=== PATIENT | male | born 1950 | race Caucasian/White ===

== ENCOUNTER 2023-09-14 17:24 | Inpatient (IN) | payer BC ==
[~2023-09-14] VITALS: Ht 185.4 cm; Wt 97.7 kg
[2023-09-14 17:50] VITALS: BP 109/44; PULSE 134; RESP 42; TEMP 99; O2SAT 100
[2023-09-14] MEDS ORDERED: cefTRIAXone 1,000 MG VIAL ONE (18:23)
[2023-09-14] MEDS: cefTRIAXone 1,000 MG in DEXT 5% MINI-BAG PLUS 50 ML IV ONE (18:46)
[2023-09-14] MEDS: NACL 0.9% 1,000 ML IV SCH ×2 (18:47→23:00)
[2023-09-14 19:05] LABS: BASOPHILS % (AUTO) 0.1 % (0.0-2.0); HEMATOCRIT 30.6 % (36-52); HEMOGLOBIN 10.3 g/dL (12.0-18.0); LYMPHOCYTES # (AUTO) 0.1 K/uL (2.0-11.5); MEAN CORPUSCULAR HEMOGLOBIN 30 pg (27-31); MEAN CORPUSCULAR HGB CONC 34 g/dL (33-37); MEAN CORPUSCULAR VOLUME 87.9 fL (80-94); NEUTROPHILS # (AUTO) 12.6 K/uL (1.8-7.7); NEUTROPHILS % (AUTO) 91.9 % (42.2-75.2); PLATELET COUNT (AUTO) 229 K/uL (140-450); RED BLOOD CELL COUNT(AUTO) 3.48 MIL/uL (4.20-6.10); RED CELL DISTRIBUTION WIDTH 17.1 % (11.6-13.7); WHITE BLOOD COUNT (AUTO) 13.7 K/uL (4.8-10.8)
[2023-09-14 19:13] LABS: ANION GAP 16.4 (8-16); CALCIUM 7.9 mg/dL (8.5-10.1); CARBON DIOXIDE 20.9 mmol/L (21-32); CHLORIDE 105 mmol/L (98-107); CREATININE 2.3 mg/dL (0.6-1.3); GLUCOSE 116 mg/dL (74-106); POTASSIUM 4.3 mmol/L (3.5-5.1); SODIUM SERUM 138 mmol/L (136-145); UREA NITROGEN, BLOOD 50 mg/dL (7-18)
[2023-09-14 19:35] LABS: LACTIC ACID 3.8 mmol/L (0.4-2.0)
[2023-09-14] MEDS ORDERED: DEXA4TAB5 PO (19:48)
[2023-09-14] MEDS ORDERED: ALBU0.0912 INH (19:48)
[2023-09-14] MEDS ORDERED: METO50TE2 PO (19:48)
[2023-09-14] MEDS ORDERED: ATOR20TA PO (19:48)
[2023-09-14] MEDS ORDERED: [UNRECOGNIZED DRUG - CODE] PO (19:52)
[2023-09-14] MEDS ORDERED: HYDR25TA32 PO (19:52)
[2023-09-14] MEDS ORDERED: LOSA100T52 PO (19:52)
[2023-09-14] MEDS ORDERED: DILT30TA18 PO (19:52)
[2023-09-14 19:53] LABS: FLU A ANTIGEN negative (NEGATIVE); FLU B ANTIGEN NEGATIVE (NEGATIVE)
[2023-09-14] MEDS ORDERED: [UNRECOGNIZED DRUG - CODE] IV (19:54)
[2023-09-14] MEDS: NACL 0.9% 1,000 ML IV ONE (20:20)
[2023-09-14] MEDS: ACETAMINOPHEN EXTRA STRENGTH 500 MG TAB PO ONE (20:53)
[2023-09-14] MEDS: METOPROLOL SUCCINATE 50 MG TABER PO SCH (21:00)
[2023-09-14] MEDS: DILTIAZEM 30 MG TAB PO SCH (21:00)
[2023-09-14 21:03] LABS: APPEARANCE,URINE SL CLOUDY (CLEAR); BILIRUBIN,URINE NEGATIVE (NEGATIVE); BLOOD, URINE 2+ (NEGATIVE); COLOR,URINE YELLOW (YELLOW); LEUKOCYTE ESTERASE ,URINE NEGATIVE (NEGATIVE); NITRITE, URINE NEGATIVE (NEGATIVE); PROTEIN,URINE 1+ (NEGATIVE); UGLUCOSE NEGATIVE (NEGATIVE); UROBILINOGEN,URINE 0.2 EU/dL (0.2 - 1)
[2023-09-14] MEDS ORDERED: ALBUTEROL SULFATE/IPRATROPIU 3 ML SOL IH PRN (21:05)
[2023-09-14 21:09] LABS: BACTERIA,URINE 2+ /HPF (None Seen); MUCUS,URINE None Seen /LPF (None Seen); SQUAMOUS EPITHELIAL CELL,UR 0-3 (FEW) /LPF (0-3 (FEW)); WBC,URINE 0-5 /HPF (0-5)
[2023-09-14] MEDS ORDERED: PIPERACILLIN/TAZOBACTAM 3.375 GM VIAL IV ONE (21:40)
[2023-09-14] MEDS: PIPERACILLIN/TAZOBACTAM 3.375 GM in DEXTROSE 5% 50 ML IV SCH (21:51)
[2023-09-14] MEDS: NACL 0.9% 500 ML IV ONE (21:59)
[2023-09-14] MEDS ORDERED: ALBUMIN HUMAN 25% 100 ML IV ONE (22:29)
[2023-09-14] MEDS: ALBUMIN HUMAN 25% 100 ML IV ONE (22:39)
[2023-09-14] MEDS: HYDROcodone/APAP 5/325 MG 1 TAB TAB PO PRN (23:30)
[2023-09-15] VITALS (21 sets, daily range): BP systolic 92–157; BP diastolic 20–77; PULSE 43–194; RESP 17–32; TEMP 98.1–98.5; O2SAT 90–100
[2023-09-15] MEDS ORDERED: NOREPINEPHRINE 4 MG/4 ML VIAL IV ONE (01:12)
[2023-09-15] MEDS: NOREPINEPHRINE 4 MG in DEXTROSE 5% 250 ML IV PRN ×2 (01:44→12:31)
[2023-09-15] MEDS: ACETAMINOPHEN 325 MG TAB PO PRN (04:50)
[2023-09-15] MEDS: NOREPINEPHRINE 4 MG/4 ML VIAL IV ONE (06:05)
[2023-09-15] MEDS ORDERED: PIPERACILLIN/TAZOBACTAM 3.375 GM VIAL IV ONE (06:13)
[2023-09-15] MEDS: ENOXAPARIN 40 MG/0.4 ML SYR SUBQ SCH (09:00)
[2023-09-15] MEDS: LOSARTAN 50 MG TAB PO SCH (09:00)
[2023-09-15] MEDS: METOPROLOL 50 MG TAB PO SCH (09:00)
[2023-09-15] MEDS ORDERED: NON-FORMULARY ITEM (Losartan Potassium 1 TAB) PO SCH (09:00)
[2023-09-15] MEDS: ATORVASTATIN 20 MG TAB PO SCH (09:00)
[2023-09-15] MEDS: hydroCHLOROthiazide 25 MG TAB PO SCH (09:00)
[2023-09-15] MEDS ORDERED: DICLOFENAC SODIUM 75 MG PO SCH (09:00)
[2023-09-15] MEDS ORDERED: NOREPINEPHRINE 8 MG in DEXTROSE 5% 250 ML IV PRN (10:30)
[2023-09-15] MEDS: ALBUTEROL 0.083% 2.5 MG/3 ML NEBU INH PRN (13:15)
[2023-09-15] MEDS: ADENOSINE 6 MG/2 ML VIAL IVP ONE ×2 (13:51)
[2023-09-15] MEDS: AMIODARONE 150 MG in DEXTROSE 5% 100 ML IV SCH (14:28)
[2023-09-15] MEDS: AMIODARONE 450 MG in DEXTROSE 5% 250 ML IV SCH (14:30)
[2023-09-16] VITALS (25 sets, daily range): BP systolic 97–163; BP diastolic 45–98; PULSE 80–101; RESP 19–26; TEMP 96.3–97.7; O2SAT 93–100
[2023-09-16 07:30] LABS: ANION GAP 15.1 (8-16); CALCIUM 7.6 mg/dL (8.5-10.1); CARBON DIOXIDE 20.4 mmol/L (21-32); CHLORIDE 104 mmol/L (98-107); CREATININE 1.8 mg/dL (0.6-1.3); GLUCOSE 157 mg/dL (74-106); POTASSIUM 3.5 mmol/L (3.5-5.1); SODIUM SERUM 136 mmol/L (136-145); UREA NITROGEN, BLOOD 43 mg/dL (7-18)
[2023-09-16 08:27] LABS: HEMATOCRIT 27.2 % (36-52); HEMOGLOBIN 9.2 g/dL (12.0-18.0); MEAN CORPUSCULAR HEMOGLOBIN 30 pg (27-31); MEAN CORPUSCULAR HGB CONC 34 g/dL (33-37); MEAN CORPUSCULAR VOLUME 87.9 fL (80-94); PLATELET COUNT (AUTO) 157 K/uL (140-450); RED BLOOD CELL COUNT(AUTO) 3.09 MIL/uL (4.20-6.10); RED CELL DISTRIBUTION WIDTH 17.2 % (11.6-13.7); WHITE BLOOD COUNT (AUTO) 4.6 K/uL (4.8-10.8)
[2023-09-16 08:29] LABS: LYMPHOCYTES % (MANUAL) 24 % (20-46); MONOCYTES % (MANUAL) 19 % (5-12)
[2023-09-16] MEDS: ONDANSETRON 4 MG/2 ML VIAL IVP PRN (12:04)
[2023-09-16] MEDS: AMIODARONE 200 MG TAB PO SCH (20:48)
[2023-09-17] VITALS (14 sets, daily range): BP systolic 106–137; BP diastolic 62–88; PULSE 84–103; RESP 15–45; TEMP 96–98.7; O2SAT 92–100
[2023-09-17 06:03] LABS: BASOPHILS % (AUTO) 0.8 % (0.0-2.0); EOSINOPHILS # (AUTO) 0.2 K/uL (0-0.4); EOSINOPHILS % (AUTO) 4.9 % (0.0-4.0); HEMATOCRIT 28.3 % (36-52); HEMOGLOBIN 9.7 g/dL (12.0-18.0); LYMPHOCYTES # (AUTO) 0.7 K/uL (2.0-11.5); LYMPHOCYTES % (AUTO) 16.9 % (20.5-51.1); MEAN CORPUSCULAR HEMOGLOBIN 30 pg (27-31); MEAN CORPUSCULAR HGB CONC 34 g/dL (33-37); MEAN CORPUSCULAR VOLUME 87.2 fL (80-94); MONOCYTES # (AUTO) 0.6 K/uL (0.8-1.0); MONOCYTES % (AUTO) 15.9 % (1.7-9.3); NEUTROPHILS # (AUTO) 2.4 K/uL (1.8-7.7); NEUTROPHILS % (AUTO) 61.5 % (42.2-75.2); PLATELET COUNT (AUTO) 165 K/uL (140-450); RED BLOOD CELL COUNT(AUTO) 3.24 MIL/uL (4.20-6.10); RED CELL DISTRIBUTION WIDTH 16.6 % (11.6-13.7)
[2023-09-17 06:16] LABS: ANION GAP 13.7 (8-16); CALCIUM 7.9 mg/dL (8.5-10.1); CARBON DIOXIDE 23.2 mmol/L (21-32); CHLORIDE 105 mmol/L (98-107); CREATININE 1.6 mg/dL (0.6-1.3); GLUCOSE 97 mg/dL (74-106); POTASSIUM 3.9 mmol/L (3.5-5.1); SODIUM SERUM 138 mmol/L (136-145); UREA NITROGEN, BLOOD 27 mg/dL (7-18)
[2023-09-17] MEDS ORDERED: LACTULOSE 20 GM/30 ML UDC PO PRN (22:35)
[2023-09-18] VITALS (10 sets, daily range): BP systolic 103–133; BP diastolic 70–91; PULSE 84–102; RESP 18–22; TEMP 96.8–98.1; O2SAT 97–100
[2023-09-18] MEDS: PANTOPRAZOLE 40 MG INJ VIAL IVP SCH (01:11)
[2023-09-18 08:24] LABS: BASOPHILS % (AUTO) 1.1 % (0.0-2.0); EOSINOPHILS # (AUTO) 0.2 K/uL (0-0.4); EOSINOPHILS % (AUTO) 4.8 % (0.0-4.0); HEMATOCRIT 31.2 % (36-52); HEMOGLOBIN 10.4 g/dL (12.0-18.0); LYMPHOCYTES # (AUTO) 0.8 K/uL (2.0-11.5); LYMPHOCYTES % (AUTO) 18.5 % (20.5-51.1); MEAN CORPUSCULAR HEMOGLOBIN 29 pg (27-31); MEAN CORPUSCULAR HGB CONC 33 g/dL (33-37); MEAN CORPUSCULAR VOLUME 87.9 fL (80-94); MONOCYTES # (AUTO) 0.8 K/uL (0.8-1.0); MONOCYTES % (AUTO) 16.9 % (1.7-9.3); NEUTROPHILS # (AUTO) 2.6 K/uL (1.8-7.7); NEUTROPHILS % (AUTO) 58.7 % (42.2-75.2); PLATELET COUNT (AUTO) 199 K/uL (140-450); RED BLOOD CELL COUNT(AUTO) 3.55 MIL/uL (4.20-6.10); RED CELL DISTRIBUTION WIDTH 16.9 % (11.6-13.7); WHITE BLOOD COUNT (AUTO) 4.5 K/uL (4.8-10.8)
[2023-09-18 09:25] LABS: ANION GAP 13.6 (8-16); CALCIUM 8.7 mg/dL (8.5-10.1); CARBON DIOXIDE 24.7 mmol/L (21-32); CHLORIDE 103 mmol/L (98-107); CREATININE 1.6 mg/dL (0.6-1.3); GLUCOSE 100 mg/dL (74-106); POTASSIUM 3.3 mmol/L (3.5-5.1); SODIUM SERUM 138 mmol/L (136-145); UREA NITROGEN, BLOOD 19 mg/dL (7-18)
[2023-09-18] MEDS: POTASSIUM CHLORIDE 10 MEQ TABER PO SCH (18:23)
[2023-09-18] MEDS ORDERED: AMIO400T3 PO (18:57)
[2023-09-18] MEDS ORDERED: LOSA-272 PO (18:58)
== END 2023-09-18 19:15 | disposition home or self-care (01) | DRG 871 ==
LOC: MED 17:24 → MTU 20:13 → MIC 09-15 05:49 → MTU 09-17 23:44
PROVIDERS: ADMIT Student in an Organized Health Care Education/Training Program; ATTEND Student in an Organized Health Care Education/Training Program
PROC: 02HV33Z Insertion of Infusion Device into Superior Vena Cava, Percutaneous Approach (ICD-10-PCS; principal; 2023-09-16)
PROC: B548ZZA Ultrasonography of Superior Vena Cava, Guidance (ICD-10-PCS; 2023-09-16)
DX: A41.9 Sepsis, unspecified organism (principal); J18.9 Pneumonia, unspecified organism; J96.01 Acute respiratory failure with hypoxia; R65.21 Severe sepsis with septic shock; N17.0 Acute kidney failure with tubular necrosis; C34.90 Malignant neoplasm of unspecified part of unspecified bronchus or lung; N39.0 Urinary tract infection, site not specified; I47.10 Supraventricular tachycardia, unspecified; E87.20 Acidosis, unspecified; Z20.822 Contact with and (suspected) exposure to COVID-19; E86.0 Dehydration; I48.91 Unspecified atrial fibrillation; I10 Essential (primary) hypertension; Z85.118 Personal history of other malignant neoplasm of bronchus and lung; Z87.442 Personal history of urinary calculi; Z87.891 Personal history of nicotine dependence; Z79.01 Long term (current) use of anticoagulants; Z79.899 Other long term (current) drug therapy; Z79.51 Long term (current) use of inhaled steroids
CPT/HCPCS: 36415; 70450; 71045; 76770; 80048; 81001; 83605; 83880; 84484; 85025; 87040; 87081; 87086; 93005; 94640; 96361; 96365; 97116; 97163-GP; 99285; C9113; J0153; J0282; J0696; J1650; J2405; J2543; J3490; J7060; J7613; P9046; Q0092